=== PATIENT | male | born 1960 | race Caucasian/White ===

== ENCOUNTER 2017-08-19 18:08 | Emergency (ER) | payer OTHER ==
[~2017-08-19] VITALS: Ht 182.9 cm; Wt 90.7 kg
[~2017-08-19 18:08] MED LIST: IBUPROFEN 800800 M1 PO; XANAX 0.5 MG0.5 MG; ZOLOFT
[2017-08-19] MEDS ORDERED: ATENOLOL 50MG T50 M1 PO (18:20)
[2017-08-19] MEDS ORDERED: COZAAR 50 MG TA50 M2 PO (18:20)
[2017-08-19] MEDS ORDERED: NORVASC5 MG PO (18:21)
[2017-08-19] MEDS ORDERED: FLONASE 0.05%50 MCG NASAL (19:30)
[2017-08-19 19:42] VITALS: BP 113/78
== END 2017-08-19 19:44 | disposition home or self-care (01) ==
LOC: M.ERS 18:08
DX: S00.93XA Contusion of unspecified part of head, initial encounter (principal); J32.9 Chronic sinusitis, unspecified; I10 Essential (primary) hypertension; F32.9 Major depressive disorder, single episode, unspecified; Z98.890 Other specified postprocedural states; W22.8XXA Striking against or struck by other objects, initial encounter; Y93.89 Activity, other specified; Y92.89 Other specified places as the place of occurrence of the external cause; Y99.8 Other external cause status